=== PATIENT | male | born 1980 ===

== ENCOUNTER 2018-06-03 06:54 | Day surgery (SDC) | payer OTHER ==
[~2018-06-03 06:54] MED LIST: HUMERA
== END 2018-06-03 16:35 | disposition home or self-care (01) ==
LOC: CIR.AMB 06:54
DX: D12.9 Benign neoplasm of anus and anal canal (principal); A63.0 Anogenital (venereal) warts

== ENCOUNTER 2019-05-24 14:38 | Emergency (ER) | payer OTHER ==
[~2019-05-24] VITALS: Ht 162.6 cm; Wt 63.0 kg
== END 2019-05-24 20:27 | disposition home or self-care (01) ==
LOC: ER 14:38
DX: Z03.818 Encounter for observation for suspected exposure to other biological agents ruled out (principal); R50.9 Fever, unspecified; I88.0 Nonspecific mesenteric lymphadenitis; K50.90 Crohn's disease, unspecified, without complications